=== PATIENT | female | born 2005 | race Caucasian/White ===

== ENCOUNTER 2025-01-08 12:32 | Outpatient (CLI) | payer OTHER | END 2025-01-08 12:33 | disposition home or self-care (01) | LOC: BICULT 12:32 | PROVIDERS: ATTEND Family Medicine | DX: E28.2 Polycystic ovarian syndrome (principal); N83.202 Unspecified ovarian cyst, left side; N83.201 Unspecified ovarian cyst, right side | CPT/HCPCS: 76856; 81001; 87086 ==

== ENCOUNTER 2025-05-04 10:42 | Emergency (ER) | payer OTHER, SELFPAY ==
[2025-05-04] MEDS ORDERED: Lidocaine 1% w/Epinephrine 1:100K 20 ML VIAL ONE (11:37)
[2025-05-04] MEDS ORDERED: Bacitracin 1 PK ONE (13:12)
== END 2025-05-04 13:19 ==
LOC: ERS 10:42
DX: S81.811A Laceration without foreign body, right lower leg, initial encounter (principal); W25.XXXA Contact with sharp glass, initial encounter
CPT/HCPCS: 12004; 99283